=== PATIENT | male | born 1990 | race Hispanic/Latino ===

== ENCOUNTER 2018-04-28 06:47 | Emergency (ER) | payer BC ==
[2018-04-28] MEDS ORDERED: IBUPROFEN 400 MG TABLET ONE ×2 (07:15→07:16)
[2018-04-28 07:44] LABS: APPEARANCE,URINE Clear (CLEAR); BILIRUBIN,URINE Negative (NEGATIVE); COLOR,URINE Yellow (YELLOW); GLUCOSE, URINE (UA) Negative (NEGATIVE); KETONES,URINE Negative (NEGATIVE); LEUKOCYTE ESTERASE ,URINE Negative (NEGATIVE); NITRATE,URINE Negative (NEGATIVE); OCCULT BLOOD,URINE Negative (NEGATIVE); PH,URINE 6.5 (5.0-8.0); PROTEIN,URINE Negative (NEGATIVE)
[2018-04-28 08:02] LABS: RAPID GROUP A STREP NEGATIVE (NEGATIVE)
== END 2018-04-28 08:29 | disposition home or self-care (01) ==
LOC: EDH 06:47
DX: J11.1 Influenza due to unidentified influenza virus with other respiratory manifestations (principal)
CPT/HCPCS: 71045; 81003; 87804; 87880